=== PATIENT | male | born 1955 | race Caucasian/White ===

== ENCOUNTER 2017-04-22 12:35 | Outpatient (CLI) | payer BC, OTHER ==
--- OUTSIDE RECORDS SUMMARY | 2017-04-22 12:38 | XMS | Clinical Summary ---
:1955 Author Organization [facility] Address [address] [place] [address] Phone Care Team Providers Name Role Phone , Primary Care Provider Unavailable Allergies Not on File Current Medications Not on file Active Problems Not on file Social History Tobacco Use Types Packs/Day Years Used Date Never Assessed Sex Assigned at Date Recorded Not on file Last Filed Vital Signs Not on file Plan of Treatment Not on file Results Not on filefrom Last 3 Months
--- NOTE | 2017-04-22 14:42 | CT ---
CT ABDOMEN AND PELVIS NONCONTRAST: HISTORY: Kidney cancer. Restaging. COMPARISON: 01/07/13. FINDINGS: Lung bases are clear. Postoperative changes of the stomach and hiatal hernia are similar in appeara nce to the prior exam. Liver is diffusely hypodense. Gallbladder and right kidney are surgically a bsent. No enlarged lymph nodes are apparent within the retroperitoneum. There is calcification wit hin the arterial structures. Lack of contrast limits evaluation for other abnormalities. Degenerative changes involving the lumb ar spine. There is calcification in the arterial structures. IMPRESSION: 1. No evidence of recurrent disease. 2. Hepatosteatosis. 3. Other chronic-type findings are stable. POS: [facility]
== END 2017-04-22 12:36 | disposition home or self-care (01) ==
LOC: CT 12:35
PROVIDERS: ATTEND Urology
DX: C64.1 Malignant neoplasm of right kidney, except renal pelvis (principal); K76.0 Fatty (change of) liver, not elsewhere classified; R31.0 Gross hematuria
CPT/HCPCS: 74176; 81001; 87086

== ENCOUNTER 2017-05-14 10:17 | Outpatient (CLI) | payer BC, OTHER ==
[2017-05-14 13:48] LABS: Hematocrit 43.8 % (42.0-52.0); Mean Platelet Volume 6.7 fL (7.4-10.4); Red Blood Cell (RBC) Count 4.87 mill/uL (4.70-6.10); White Blood Cell (WBC) Count 6.6 thou/uL (4.8-10.8)
[2017-05-14 13:55] LABS: PTT 29.6 SEC (22.9-36.1)
[2017-05-14 13:59] LABS: Prothrombin Time 13.1 SEC (12.0-14.7)
--- OUTSIDE RECORDS SUMMARY | 2017-05-16 05:17 | XMS | Clinical Summary ---
:1955 Author Organization [facility] Address [address] [place] [address] Phone Care Team Providers Name Role Phone [...]
== END 2017-05-14 10:18 | disposition home or self-care (01) ==
LOC: LABBT 10:17
PROVIDERS: ATTEND Urology
DX: Z01.818 Encounter for other preprocedural examination (principal); R31.0 Gross hematuria
CPT/HCPCS: 85027; 85610; 85730

== ENCOUNTER 2017-05-15 05:49 | Day surgery (SDC) | payer BC, OTHER ==
[2017-05-14 10:27] VITALS: BMI 33.0
[2017-05-15] MEDS ORDERED: Levofloxacin 500 mg/D5W 100 ml Premix Bag ONE (06:34)
[2017-05-15] MEDS ORDERED: Fentanyl 100 MCG/2 ML VIAL ONE ×2 (06:44)
[2017-05-15] MEDS ORDERED: Iothalamate Meglumine 60% 50 ML VIAL FS ONE (07:14)
[2017-05-15] MEDS ORDERED: Succinylcholine Chloride 20 MG/ML 10 ml SYRINGE FS ONE (07:36)
[2017-05-15] MEDS ORDERED: Metoclopramide HCl 10 MG/2 ML VIAL ONE (07:36)
[2017-05-15] MEDS ORDERED: Lidocaine 1% PF 5 ML VIAL ONE (07:36)
[2017-05-15] MEDS ORDERED: Propofol 200 MG/20 ML VIAL ONE (07:36)
[2017-05-15] MEDS ORDERED: Ondansetron HCl/PF 4 MG/2 ML Vial ONE (07:36)
[2017-05-15] MEDS ORDERED: Dexamethasone 20 MG/5 ML VIAL ONE (07:36)
[2017-05-15] MEDS ORDERED: Phenazopyridine HCl 97.5 MG TABLET ONE (08:21)
[2017-05-15] MEDS ORDERED: Promethazine HCl 25 MG/ML VIAL ONE (08:24)
[2017-05-15] MEDS ORDERED: Non-Formulary Medication 1 EACH PO PRN (08:52)
[2017-05-15] MEDS ORDERED: Promethazine HCl 25 MG/ML VIAL IM/IV PRN (08:52)
[2017-05-15] MEDS ORDERED: Ondansetron HCl/PF 4 MG/2 ML Vial IVP PRN (08:52)
--- NOTE | 2017-05-15 09:15 | RAD ---
RETROGRADE IVP: History: 61-year-old male with history of neoplasm of the right kidney, prior right nephrectomy. FINDINGS: Multiple fluoroscopic spot images are performed. There is injection of the left ureter. No evidence for ureteral obstruction. No overt intraluminal calculus or other filling defect. IMPRESSION: Unremarkable left retrograde pyelogram. History of prior right nephrectomy with surgical clips in th e right retroperitoneum. POS: [facility]
--- NOTE | 2017-05-15 09:51 | OP ---
DATE OF PROCEDURE: 05/15/2017 PREOPERATIVE DIAGNOSES: 1. A 61-year-old male with pathologic T3a chromophobe renal cell carcinoma, status post right nephr ectomy with no evidence of cancer recurrence. 2. History of benign prostatic hypertrophy. 3. History of elevated PSA, multiple biopsies negative for malignancy with benign digital rectal ex amination. 4. Recent gross hematuria. POSTOPERATIVE DIAGNOSES: 1. A 61-year-old male with pathologic T3a chromophobe renal cell carcinoma, status post right nephr ectomy with no evidence of cancer recurrence. 2. History of benign prostatic hypertrophy. 3. History of elevated PSA, multiple biopsies negative for malignancy with benign digital rectal ex amination. 4. Recent gross hematuria. PROCEDURE: Cystoscopy, left retrograde pyelogram, meatal calibration, dilatation of mild meatal kelsy nosis. SURGEON: Peace Escobedo D.O. ANESTHESIA: General. COMPLICATIONS: None apparent. SPECIMEN: None. DISPOSITION: To recovery room in stable condition. INTRAOPERATIVE FINDINGS: 1. Mild meatal stenosis caliber, approximately 16 Montserratian, subsequently dilated to 28 [place]ian with ea se. 2. Nonobstructing wide caliber bulbar stricture, caliber approximately 18-20 Montserratian. 3. Moderately obstructing prostate bilobar hyperplasia of prostate with no significant intravesical median lobe. 4. No evidence of bladder tumor lesion. Clear efflux of the ureter, left retrograde pyelogram negat flores for obstruction, filling defect. INDICATIONS FOR THE PROCEDURE AND HISTORY: Mr. Wilder is a 61-year-old male who I treated for rig ht chromophobe renal cell carcinoma, status post right nephrectomy. The patient has had no cancer r ecurrence. He does have an elevated PSA which we did perform multiple staging biopsy is negative fo r malignancy. Last biopsy was performed on 10/28/2014. I discussed with patient regarding possible consideration for MRI-guided prostate biopsy, a persistent elevated PSA. His baseline PSA over the last 4 years has been variable from 5.0-5.9, with percent free with 10% probability of malignancy. I will continue to follow this. He presents today for exam under anesthesia for gross hematuria wo rkup. He presented to my office with episode of gross hematuria after intercourse, he has not been active for years. This had resolved. He had subsequently voided clear yellow urine and preop urine culture negative. I did obtain a followup cytology, which is negative for malignancy. As he has h istory of solitary kidney with renal insufficiency, advised regarding exam under anesthesia with ret rograde pyelogram and desires to proceed. Risks and complications of the procedure was reviewed wit h him in detail including, but not limited to, bleeding, pain, infection, injury to adjacent organs, urosepsis. DESCRIPTION OF THE PROCEDURE: After an informed consent is signed, the patient is taken to the oper ating room, placed in a dorsal lithotomy position with the genital area prepped and draped in the [facility] surgical sterile fashion. A 21-Montserratian cystoscope was attempted to be passed; however, there was resistance at the level of the meatus. Therefore, I did utilize Zayra sounds. His meatus mauricio brated to 16 Montserratian. We subsequently dilated to 28 [place]ian with ease. We subsequently passed a 28 F rench cystoscope which demonstrated a wide caliber bulbar stricture, approximately 18-20 Mont[place]err[place]ian mauricio [place] at the level of the bulbar urethra. I was able to pass this proximal to this without any issues . Bilobar hyperplasia of the prostate moderately obstructing was noted. Upon entering the bladder, there was no evidence of bladder tumor or stones. Bilateral UOs are normal orthotopic positions, s tatus post right nephrectomy. The left UO demonstrated clear efflux of urine. An open-ended cathet er, utilizing 5 Monts[place]atian open-ended catheter with diluted contrast was utilized for retrograde study, which demonstrated no evidence of filling defect or hydronephrosis. There was prompt excretion of c ontrast. At this time, we then resurveyed the prostate and the bulbar urethral stricture. Again, t his was nonobstructing and therefore I will observe. We subsequently removed the cystoscope. I did pass a 20 [place] catheter which intubated the bladder without any issues. Bladder was completely e mptied, catheter removed. He tolerated the procedure well and transported to the recovery room in s table condition. I will continue to monitor his voiding parameters. Repeat local cystoscopy to sta ge bulbar stricture would be warranted if recurrence of gross hematuria, decreased urinary caliber. The patient will take AZO p.r.n. for dysuria. Return to clinic for a postop check on 05/31/2017.
--- OUTSIDE RECORDS SUMMARY | 2017-05-16 13:28 | XMS | Clinical Summary ---
:1955 Author Organization [facility] Address [address] [place] [address] Phone Care Team Providers Name Role Phone [...]
== END 2017-05-15 09:20 | disposition home or self-care (01) ==
LOC: SDC 05:49
PROVIDERS: ATTEND Urology
PROC: 0T7D8ZZ Dilation of Urethra, Via Natural or Artificial Opening Endoscopic (ICD-10-PCS; principal; 2017-05-15)
DX: R31.0 Gross hematuria (principal); I10 Essential (primary) hypertension; E78.00 Pure hypercholesterolemia, unspecified; I25.10 Atherosclerotic heart disease of native coronary artery without angina pectoris; N40.0 Benign prostatic hyperplasia without lower urinary tract symptoms; E07.9 Disorder of thyroid, unspecified; Z88.5 Allergy status to narcotic agent; Z88.8 Allergy status to other drugs, medicaments and biological substances; Z79.82 Long term (current) use of aspirin; Z79.899 Other long term (current) drug therapy; Z95.1 Presence of aortocoronary bypass graft; Z90.49 Acquired absence of other specified parts of digestive tract; Z90.5 Acquired absence of kidney; Z98.84 Bariatric surgery status; Z87.448 Personal history of other diseases of urinary system
CPT/HCPCS: 74420; 96374; C1758; C1769; J1100; J1956; J2001; J2270; J2405; J2550; J2704; J2765; J3010; Q9961

== ENCOUNTER 2019-01-25 16:49 | Inpatient (IN) | payer BC, OTHER ==
[2019-01-25 17:24] LABS: #Eosinphils 0.1 thou/uL (0.0-0.7); #Lymphocytes 0.8 thou/uL (1.20-3.40); #Monocytes 1.3 thou/uL (0.11-0.59); #Neutrophils 12.3 thou/uL (1.40-6.50); %Basophils 0.2 % (0.0-1.0); %Eosinophils 0.8 % (0.0-10.0); %Lymphocytes 5.6 % (21.0-51.0); %Monocytes 9.2 % (0.0-10.0); %Neutrophils 84.2 % (42.0-75.0); Hemoglobin 14.6 g/dL (14.0-18.0); Mean Corpuscular HGB CONC 34.9 g/dL (32.0-36.0); Mean Corpuscular Hemoglobin 29.3 pg (27.0-31.0); Mean Corpuscular Volume 83.9 fL (78.0-98.0); Mean Platelet Volume 6.4 fL (7.4-10.4); Platelet Count 215 thou/uL (130-400); RBC Distribution Width 12.6 % (11.5-14.5); Red Blood Cell (RBC) Count 4.98 mill/uL (4.70-6.10); White Blood Cell (WBC) Count 14.6 thou/uL (4.8-10.8)
--- NOTE | 2019-01-25 17:33 | RAD ---
Exam: Chest one view HISTORY:Chest pain Comparison: 08/10/2012 FINDINGS: Cardiac silhouette:There is cardiomegaly. Sternotomy wires are noted. Pulmonary vessels: Slightly prominent. Costophrenic angles: Clear LUNGS: Patchy interstitial opacities, without consolidation or mass. Pneumothorax: None Osseous abnormalities: None IMPRESSION: 1. Congestive heart failure. Continued surveillance is recommended.
[2019-01-25 17:46] LABS: ALT (SGPT) 28 U/L (8-55); AST (SGOT) 20 U/L (5-34); Alkaline Phosphatase 89 U/L (40-150); Anion Gap 17 mmol/L (10-20); BUN (Urea Nitrogen) 10 mg/dL (8.4-25.7); Bilirubin, Total 1.4 mg/dL (0.2-1.2); CK (CPK) 148 U/L (30-200); Calc. Creatinine Clearance 0 mL/min (70-130); Calcium 8.6 mg/dL (7.8-10.44); Carbon Dioxide 21 mmol/L (23-31); Chloride 102 mmol/L (98-107); Estimated GFR-MDRD 78; Globulin 2.8 g/dL (2.4-3.5); Glucose 131 mg/dL (80-115); Lipase 698 U/L (8-78); Protein, Total 6.8 g/dL (5.8-8.1); Sodium 137 mmol/L (136-145)
[2019-01-25 17:48] LABS: Potassium 2.8 mmol/L (3.5-5.1)
[2019-01-25] MEDS ORDERED: NS 0.9% w/ 40 MEQ KCL 1,000 ML IV SCH (18:15)
[2019-01-25] MEDS ORDERED: Morphine 4 MG/ML VIAL ONE (19:21)
[2019-01-25] MEDS ORDERED: Ondansetron PF 4 MG/2 ML Vial ONE (19:21)
[2019-01-25 19:46] LABS: Bilirubin Negative (Negative); Blood, Urine Trace (Negative); Clarity Clear (Clear); Glucose, Urine (Dipstick) Normal (Negative); Leukocyte Negative Leu/uL (Negative); Nitrite Negative (Negative); Protein, Urine (Dipstick) 50 mg/dL (Neg-Trace); RBC/HPF 0-3 HPF (0-3); Urobilinogen 3 mg/dL (Less than 2); WBC/HPF 0-3 HPF (0-3)
[2019-01-25 19:48] LABS: Bacteria/HPF None Seen HPF (None Seen)
--- NOTE | 2019-01-25 20:47 | CT ---
EXAM: CT ABDOMEN AND PELVIS HISTORY: Abdominal pain. Renal cancer. Previous nephrectomy. COMPARISON: 04/22/2017 Procedure: Multiple contiguous axial images were obtained and a CT of the abdomen and pelvis with IV contrast. C oronal reformats were performed. FINDINGS: Lower Chest: Chronic changes lung bases. Vessels: Normal caliber aorta. Heart: Unremarkable Abdomen: Portal vein:Patent Gallbladder: Surgically absent Liver: within normal limits. Pancreas: There is atrophy of the pancreas with peripancreatic fat stranding. No cyst or abscess. Spleen: within normal limits. Adrenals: within normal limits. Kidneys: Surgically absent right kidney. Appropriate enhancement of the left kidney. No obstructive u ropathy. Subcentimeter hypodensity emanating from the lower pole of the left kidney is too small to characterize. Peritoneum: There is fluid in the peripancreatic space, extending anterior to the left renal space an d down the left paracolic gutter. No free air. No mass or lymphadenopathy. Bowel: Limited evaluation due to lack of oral contrast. Stable large hiatal hernia with fluid in the visualized thoracic esophagus. No evidence of small bowel obstruction. Ileocecal junction is unremarkable. Appendix is not appreciated. Scattered fecal material in a nondistended, nondilated col on. Mild mucosal thickening and pericolonic fat stranding adjacent to the splenic flexure is likely reactive, secondary to pancreatitis. Mesentery and Retroperitoneum: No enlarged mesenteric or retroperitoneal lymph nodes. Abdominal Wall: within normal limits. Pelvis: Reproductive Organs: No pelvic masses. Pelvis: within normal limits. Bladder: within normal limits. Bones: within normal limits. IMPRESSION: 1. Pancreatitis. No evidence of peripancreatic abscess or pseudocyst.
[2019-01-25] MEDS ORDERED: Ondansetron ODT 4 MG TAB PO PRN (22:42)
[2019-01-25] MEDS ORDERED: Magnesium 2 GM/50 ML 2 GM in Premix Bag 1 BAG IVPB SCH (23:15)
[2019-01-25] MEDS ORDERED: Magnesium 2 GM/50 ML BAG (IN WATER) ONE (23:45)
[2019-01-25] MEDS ORDERED: Potassium Chloride 40 MEQ in Sodium Chloride 0.9% 500 ML IVPB SCH (23:59)
[2019-01-26] MEDS: Sodium Chloride 0.9% 1,000 ML IV SCH ×4 (00:04→21:44)
--- NOTE | 2019-01-26 00:18 | PDOC.FPRHP ---
- History of Present Illness Chief Complaint: Abdominal Pain, nausea and vomiting History of Present Illness: Mr. Wilder presented to the ED the evening of 01/25/19 for nausea, vomiting, and severe abdominal pain. He states that the abdominal pain began 5 prior to admission and was associated with nausea. He began vomiting today and has vomited approximately 10 times. He had associated diarrhea last week but has not had a BM 01/24/19. The pain is 8/10, located in his midepigastrium, is constant and does not radiate. ED Course: EKG (chest pain rule out), morphine 4mg, zofran 4mg, KCl 40meq in 1L NS, 1L NS. - Allergies/Adverse Reactions Allergies Allergy/AdvReac Type Severity Reaction Status Date / Time acetaminophen [From Vicodin] Allergy Verified 05/14/17 10:28 hydrocodone [From Vicodin] Allergy Verified 05/14/17 10:28 - Home Medications Medication Instructions Recorded Confirmed Type Aspirin [Ecotrin] 81 mg PO DAILY 05/14/17 01/26/19 History Ezetimibe 1 tab PO HS 05/14/17 01/26/19 History Levothyroxine Sodium 50 mcg PO DAILY 05/14/17 01/26/19 History Metoprolol Tartrate 0.5 tab PO HS 05/14/17 01/26/19 History Omeprazole 1 tab PO HS 05/14/17 01/26/19 History Rosuvastatin Calcium 40 mg PO HS 05/14/17 01/26/19 History Sertraline HCl [Zoloft] 0.5 tab PO HS 05/14/17 01/26/19 History Tamsulosin HCl [Flomax] 0.4 mg PO DAILY 05/14/17 01/26/19 History - History PMHx: Hypertension CAD Hyperlipidemia Hypothyroidism GERD Renal cancer Anxiety / Depression BPH PSHx: Left nephrectomy CABG x3 Fundoplication Hiatal hernia repair x2 Cholecystectomy FHx: Non-contributory Social: Never smoker, non-drinker, no illicit drugs. - Review of Systems General: denies: fever/chills, weight/appetite/sleep changes, night sweats, fatigue ENT: denies: nasal congestion, rhinorrhea Respiratory: denies: cough, congestion Cardiovascular: reports: chest pain (believed to be related to vomiting). denies: palpitation, edema, paroxysmal nocturnal dyspnea, orthopnea Gastrointestinal: reports: nausea, vomiting, diarrhea, abdominal pain. denies: constipation, GI bleeding Genitourinary: denies: incontinence Skin: denies: rashes Musculoskeletal: reports: pain (abdominal muscular pain) - Vital signs BP: [178/92] HR: [89] RR: [18] Tmax: [100.3F @ 1653] Pox: [95]% on [RA] Wt: [ 104kg] - Physical Exam Constitutional: NAD, awake, alert and oriented HEENT: normocephalic and atraumatic, grossly normal hearing Neck: supple, FROM Heart: RRR (tachycardic), normal S1/S2, no murmurs/rubs/gallops Lungs: CTAB, no respiratory distress, no rales/rhonchi, no wheezing Abdomen: soft (tender to light palpation at the midepigastrium), bowel sounds present (hypoactive) Neurological: no focal deficit Skin: no rash/lesions Psychiatric: normal mood and affect FMR H&P: Results - Labs Result Diagrams: 01/26/19 05:08 01/26/19 05:08 Lab results: WBC 14.6 thou/uL (4.8-10.8) H 01/25/19 17:14 Hgb 14.6 g/dL (14.0-18.0) 01/25/19 17:14 Hct 41.7 % (42.0-52.0) L 01/25/19 17:14 MCV 83.9 fL (78.0-98.0) 01/25/19 17:14 Plt Count 215 thou/uL (130-400) 01/25/19 17:14 Neutrophils % 84.2 % (42.0-75.0) H 01/25/19 17:14 Sodium 137 mmol/L (136-145) 01/25/19 17:14 Potassium 2.8 mmol/L (3.5-5.1) L* 01/25/19 17:14 Chloride 102 mmol/L (98-107) 01/25/19 17:14 Carbon Dioxide 21 mmol/L (23-31) L 01/25/19 17:14 BUN 10 mg/dL (8.4-25.7) 01/25/19 17:14 Creatinine 0.97 mg/dL (0.7-1.3) 01/25/19 17:14 Glucose 131 mg/dL (80-115) H 01/25/19 17:14 Calcium 8.6 mg/dL (7.8-10.44) 01/25/19 17:14 Total Bilirubin 1.4 mg/dL (0.2-1.2) H 01/25/19 17:14 AST 20 U/L (5-34) 01/25/19 17:14 ALT 28 U/L (8-55) 01/25/19 17:14 Alkaline Phosphatase 89 U/L (40-150) 01/25/19 17:14 Creatine Kinase 148 U/L (30-200) 01/25/19 17:14 Serum Total Protein 6.8 g/dL (5.8-8.1) 01/25/19 17:14 Albumin 4.0 g/dL (3.4-4.8) 01/25/19 17:14 Lipase 698 U/L (8-78) H 01/25/19 17:14 Urine Ketones 60 mg/dL (Negative) A 01/25/19 19:20 Urine Blood Trace (Negative) A 01/25/19 19:20 Urine Nitrite Negative (Negative) 01/25/19 19:20 Ur Leukocyte Esterase Negative Ruben/uL (Negative) 01/25/19 19:20 Urine RBC 0-3 HPF (0-3) 01/25/19 19:20 Urine WBC 0-3 HPF (0-3) 01/25/19 19:20 Urine Bacteria None Seen HPF (None Seen) 01/25/19 19:20 - EKG Interpretation EK01/25/2019 @ 1656 Sinus tachycardia, no T wave changes - Radiology Interpretation Chest x-ray Status: report reviewed by me (Cardiomegaly. Lungs show patchy interstitial opacities without consolidation or mass. Impression: CHF) CT scan - abdomen Status: report reviewed by me (atrophy of the pancreas with peripancreatic fat stranding, no cyst of abscess. Surgically absent right kidney.) FMR H&P: A/P - Problem List (1) Acute pancreatitis Current Visit: Yes Status: Acute Code(s): K85.90 - ACUTE PANCREATITIS WITHOUT NECROSIS OR INFECTION, UNSP Qualifiers: Pancreatitis type: unspecified pancreatitis type (2) Hypokalemia Current Visit: Yes Status: Acute Code(s): E87.6 - HYPOKALEMIA (3) Hypothyroidism Current Visit: Yes Status: Chronic Code(s): E03.9 - HYPOTHYROIDISM, UNSPECIFIED (4) Benign prostate hyperplasia Current Visit: Yes Status: Chronic Code(s): N40.0 - BENIGN PROSTATIC HYPERPLASIA WITHOUT LOWER URINRY TRACT SYMP (5) Hyperlipidemia Current Visit: Yes Status: Chronic Code(s): E78.5 - HYPERLIPIDEMIA, UNSPECIFIED (6) Coronary artery disease Current Visit: Yes Status: Chronic Code(s): I25.10 - ATHSCL HEART DISEASE OF [place] CORONARY ARTERY W/O ANG PCTRS - Plan 1. Acute pancreatitis - Strict NPO - Aggressive IV fluids, 140mL/hour NS - Pain control with morphine 4mg IV q 4hr, PRN 2. Hypokalemia - 2.8 on admission - Received 40meq in the ER. Added 40meq on transfer. - Mg 1.7 - Recheck with AM labs 3. Hypertension - BP elevated in ER. - NPO, hasn't taken home meds today (Metoprolol 25mg 1/2tab po BID) - Will start on IV Hydralazine and Labetolol PRN until PO is resumed 4. CAD - Will resume home medication (aspirin 81mg) when he tolerates PO 5. Hypothyroidism - Will resume home medication (levothyroxine 100mcg) when he tolerates PO 6. GERD - Will resume home medication (omeprazole 20mg) when he tolerates PO 7. Hyperlipidemia - Will resume home medication (zetia 10mg, crestor 40mg) when he tolerates PO 8. BPH - Will resume home medication (tamsulosin 0.4mg) when he tolerates PO 9. Anxiety and Depression - Will resume home medication (sertraline 50mg) when he tolerates PO Disposition/LOS: Plan to d/c home. FMR H&P: Upper Level - Pertinent history 63 yo M with hx of CAD s/p 3vCABG, HLD, HTN, hypothyroid, MDD and BPH here with complaint of 5 days of progressively worsening abdominal pain with associated vomiting. Pain is in the epigastrum and does not radiate. Made worse by palpation and eating. No previous hx of similar symptoms. No recent hx of travel or sick contacts. Denies associated fever, blood stools, blood in vomit. In the ED CT abd was concerning for pancreatitis without complicating pseudocysts. Patient was made NPO and given morphine for pain control. See internal control consultant note for full ROS General denies fever or chills CV denies palpitation or chest pain Resp denies SOB or cough Abd complains of epigastric pain with associated n/v. No diarrhea, blood in vomit, blood in stool Neuro no numbness or tingling or weakness - Pertinent findings See internal control consultant note for vitals, labs, and full PE General A&O x3, no acute distress HEENT NCAT CV RRR no murmur Resp CTA Abd Diffuse TTP, worst at epigastrum. Normal BS. Abd soft Neuro no focal deficits - Plan Date/Time: 01/26/19 0016 I, Negro Garcia DO, have evaluated this patient and agree with findings/plan as outlined by internal control consultant resident. Pertinent changes/additions are listed here. 1. Acute pancreatitis - NPO over night and consider advancing diet in am. - Morphine for pain control - trend cmp, fluid requirement, base deficit, and pO2 for Sycamore's criteria - Check lipids 2. HTN - PRN IV antihypertensives, restart home meds in am 3. CAD - restart home meds 4. hypokalemia - replace IV, recheck in am See internal control consultant note for chronic problem management Addendum - Attending - Attending Attestation Date/Time: 01/26/19 4930 I personally evaluated the patient and discussed the management with Dr. Oliver last night at time of admission. I agree with the History, Examination, Assessment and Plan documented above with any addition or exceptions noted below.
[2019-01-26] MEDS ORDERED: Labetalol HCl 100 MG/20 ML VIAL SLOW IVP PRN (02:04)
[2019-01-26 03:09] VITALS: BMI 31.9
[2019-01-26] MEDS: hydrALAZINE 20 MG/ML VIAL SLOW IVP PRN (03:45)
[2019-01-26] MEDS: Morphine 4 MG/ML VIAL SLOW IVP PRN ×3 (03:47→19:16)
[2019-01-26 07:09] LABS: Hemoglobin 13.8 g/dL (14.0-18.0); Mean Corpuscular HGB CONC 33.1 g/dL (32.0-36.0); Mean Corpuscular Hemoglobin 28.3 pg (27.0-31.0); Mean Corpuscular Volume 85.4 fL (78.0-98.0); Mean Platelet Volume 6.8 fL (7.4-10.4); Platelet Count 199 thou/uL (130-400); RBC Distribution Width 12.8 % (11.5-14.5); Red Blood Cell (RBC) Count 4.87 mill/uL (4.70-6.10); White Blood Cell (WBC) Count 22.3 thou/uL (4.8-10.8)
[2019-01-26 07:19] LABS: ALT (SGPT) 22 U/L (8-55); AST (SGOT) 17 U/L (5-34); Albumin 3.7 g/dL (3.4-4.8); Alkaline Phosphatase 83 U/L (40-150); Anion Gap 13 mmol/L (10-20); BUN (Urea Nitrogen) 9 mg/dL (8.4-25.7); Bilirubin, Total 1.3 mg/dL (0.2-1.2); Calc. Creatinine Clearance 109 mL/min (70-130); Calcium 8.6 mg/dL (7.8-10.44); Carbon Dioxide 26 mmol/L (23-31); Chloride 103 mmol/L (98-107); Estimated GFR-MDRD 74; Glucose 118 mg/dL (80-115); Lipase 305 U/L (8-78); Protein, Total 6.7 g/dL (5.8-8.1); Sodium 139 mmol/L (136-145)
[2019-01-26 07:40] LABS: Band 20 % (5-11); Lymphocytes 4 % (21-51); MDiff Complete? YES; Monocytes 8 % (0-10); Neutrophil 66 % (42-75); Platelet Morphology Comment Appears Adequate; RBC Morphology Normal; Reactive Lymphocytes 1 % (0-10)
--- NOTE | 2019-01-26 07:44 | PDOC.FM ---
- Subjective Subjective: pt reporting pain in abdomen, denies N/V - Objective Vital Signs & Weight: Vital Signs (12 hours) Temp Pulse Resp BP BP Pulse Ox 01/26/19 07:29 98.2 F 84 18 172/68 H 97 01/26/19 05:42 97.8 F 86 16 169/77 H 96 01/26/19 03:45 96 200/101 H 01/26/19 03:01 97 01/26/19 02:42 99.1 F 93 18 200/101 H 97 Weight Weight 104 kg Result Diagrams: 01/26/19 05:08 01/26/19 05:08 Phys Exam - Physical Examination Constitutional: NAD HEENT: moist MMs Neck: full ROM Respiratory: clear to auscultation bilateral Cardiovascular: RRR, no significant murmur TTP, tympanic, mild guarding Musculoskeletal: no edema Neurological: moves all 4 limbs Psychiatric: normal affect Skin: no rash Dx/Plan (1) Acute pancreatitis Code(s): K85.90 - ACUTE PANCREATITIS WITHOUT NECROSIS OR INFECTION, UNSP Status: Acute Qualifiers: Pancreatitis type: unspecified pancreatitis type (2) Hypokalemia Code(s): E87.6 - HYPOKALEMIA Status: Acute (3) Benign prostate hyperplasia Code(s): N40.0 - BENIGN PROSTATIC HYPERPLASIA WITHOUT LOWER URINRY TRACT SYMP Status: Chronic (4) Coronary artery disease Code(s): I25.10 - ATHSCL HEART DISEASE OF [place] CORONARY ARTERY W/O ANG PCTRS Status: Chronic (5) Hyperlipidemia Code(s): E78.5 - HYPERLIPIDEMIA, UNSPECIFIED Status: Chronic (6) Hypothyroidism Code(s): E03.9 - HYPOTHYROIDISM, UNSPECIFIED Status: Chronic - Plan Plan: Acute pancreatitis - epigastric pain, elevated lipase and CT suggestive - Morphine for pain control - trend cmp, fluid requirement, base deficit, and pO2 for Luz Marina's criteria - FLP wnl, lipase downtrending - ADAT when pain free HTN - PRN IV antihypertensives, restart home meds hypokalemia - monitor and replete as needed CAD - Will resume home medication (aspirin 81mg) when he tolerates PO Hypothyroidism - Will resume home medication (levothyroxine 100mcg) when he tolerates PO GERD - Will resume home medication (omeprazole 20mg) when he tolerates PO Hyperlipidemia - Will resume home medication (zetia 10mg, crestor 40mg) when he tolerates PO BPH - Will resume home medication (tamsulosin 0.4mg) when he tolerates PO Anxiety and Depression - Will resume home medication (sertraline 50mg) when he tolerates PO Dispo: advance diet today, monitor Addendum - Attending - Attending Attestation Date/Time: 01/26/19 1024 I personally evaluated the patient and discussed the management with Dr. Gross. I agree with the History, Examination, Assessment and Plan documented above with any addition or exceptions noted below.
[2019-01-26] MEDS ORDERED: Prevnar 13-Val Conj/PF 0.5 ML SYRINGE IM ONE (09:00)
[2019-01-26] MEDS ORDERED: NS 0.9% w/ 40 MEQ KCL 1,000 ML IV SCH (11:00)
[2019-01-27] MEDS: Sodium Chloride 0.9% 1,000 ML IV SCH ×2 (03:11→08:06)
[2019-01-27] MEDS: Morphine 4 MG/ML VIAL SLOW IVP PRN (06:40)
[2019-01-27 06:58] LABS: #Eosinphils 0.1 thou/uL (0.0-0.7); #Lymphocytes 0.8 thou/uL (1.20-3.40); #Monocytes 1.6 thou/uL (0.11-0.59); #Neutrophils 15.7 thou/uL (1.40-6.50); %Basophils 0.1 % (0.0-1.0); %Eosinophils 0.6 % (0.0-10.0); %Lymphocytes 4.6 % (21.0-51.0); %Monocytes 8.8 % (0.0-10.0); Hemoglobin 12.2 g/dL (14.0-18.0); Mean Corpuscular HGB CONC 32.5 g/dL (32.0-36.0); Mean Corpuscular Volume 86.4 fL (78.0-98.0); Mean Platelet Volume 7.4 fL (7.4-10.4); Platelet Count 161 thou/uL (130-400); RBC Distribution Width 12.9 % (11.5-14.5); Red Blood Cell (RBC) Count 4.34 mill/uL (4.70-6.10); White Blood Cell (WBC) Count 18.3 thou/uL (4.8-10.8)
[2019-01-27 07:18] LABS: ALT (SGPT) 18 U/L (8-55); AST (SGOT) 18 U/L (5-34); Albumin 3.1 g/dL (3.4-4.8); Alkaline Phosphatase 68 U/L (40-150); Anion Gap 9 mmol/L (10-20); BUN (Urea Nitrogen) 11 mg/dL (8.4-25.7); Bilirubin, Total 0.8 mg/dL (0.2-1.2); Calc. Creatinine Clearance 119 mL/min (70-130); Calcium 8.8 mg/dL (7.8-10.44); Carbon Dioxide 27 mmol/L (23-31); Chloride 106 mmol/L (98-107); Estimated GFR-MDRD 83; Globulin 2.7 g/dL (2.4-3.5); Glucose 116 mg/dL (80-115); Lipase 85 U/L (8-78); Potassium 3.3 mmol/L (3.5-5.1); Protein, Total 5.8 g/dL (5.8-8.1); Sodium 139 mmol/L (136-145)
--- NOTE | 2019-01-27 07:59 | PDOC.FM ---
- Subjective Subjective: pt resting comfortably in bed, minimal pain. tolerating PO - Objective Vital Signs & Weight: Weight Weight 104 kg I&O: 01/26/19 01/27/19 01/28/19 06:59 06:59 06:59 Intake Total 360 Balance 360 Result Diagrams: 01/27/19 05:40 01/27/19 05:40 Phys Exam - Physical Examination Constitutional: NAD HEENT: moist MMs Neck: full ROM Gastrointestinal: soft, no distention minimally tender to palpation Musculoskeletal: pulses present Neurological: moves all 4 limbs Psychiatric: normal affect Skin: no rash Dx/Plan (1) Acute pancreatitis Code(s): K85.90 - ACUTE PANCREATITIS WITHOUT NECROSIS OR INFECTION, UNSP Status: Acute Qualifiers: Pancreatitis type: unspecified pancreatitis type (2) Hypokalemia Code(s): E87.6 - HYPOKALEMIA Status: Acute (3) Benign prostate hyperplasia Code(s): N40.0 - BENIGN PROSTATIC HYPERPLASIA WITHOUT LOWER URINRY TRACT SYMP Status: Chronic (4) Coronary artery disease Code(s): I25.10 - ATHSCL HEART DISEASE OF [place] CORONARY ARTERY W/O ANG PCTRS Status: Chronic (5) Hyperlipidemia Code(s): E78.5 - HYPERLIPIDEMIA, UNSPECIFIED Status: Chronic (6) Hypothyroidism Code(s): E03.9 - HYPOTHYROIDISM, UNSPECIFIED Status: Chronic - Plan Plan: Acute pancreatitis - epigastric pain, elevated lipase and CT suggestive on admission - Morphine for pain control - trend cmp, fluid requirement, base deficit, and pO2 for Luz Marina's criteria - FLP wnl, lipase downtrending - ADAT HTN - PRN IV antihypertensives, restart home meds hypokalemia - monitor and replete as needed CAD - continue home medication (aspirin 81mg) Hypothyroidism - continue home medication (levothyroxine 100mcg) GERD - continue home medication (omeprazole 20mg) Hyperlipidemia - continue home medication (zetia 10mg, crestor 40mg) BPH - continue home medication (tamsulosin 0.4mg) Anxiety and Depression - continue home medication (sertraline 50mg) Dispo: DC today or tomorrow Addendum - Attending - Attending Attestation Date/Time: 01/27/19 1031 I personally evaluated the patient and discussed the management with Dr. Gross. I agree with the History, Examination, Assessment and Plan documented above with any addition or exceptions noted below.
[2019-01-27] MEDS ORDERED: Acetaminophen 325 MG TAB PO PRN (08:00)
[2019-01-27] MEDS ORDERED: Potassium Chloride 20 MEQ TAB PO SCH (10:15)
[2019-01-27] MEDS: hydrALAZINE 20 MG/ML VIAL SLOW IVP PRN (11:41)
[2019-01-27 16:24] VITALS: BP 183/84; TEMP 99
[2019-01-27] MEDS ORDERED: Non-Formulary Item 1 EACH (Rosuvastatin Calcium [Rosuvastatin Calcium] 40 MG) PO SCH (21:00)
[2019-01-27] MEDS ORDERED: Rosuvastatin 20 MG TAB PO SCH (21:00)
[2019-01-27] MEDS ORDERED: Ezetimibe 10 MG TAB PO SCH ×2 (21:00)
[2019-01-27] MEDS ORDERED: Metoprolol Tartrate 25 MG TAB PO SCH ×2 (21:00)
[2019-01-27] MEDS ORDERED: Non-Formulary Item 1 EACH (Omeprazole [Omeprazole] 1 TAB) PO SCH (21:00)
[2019-01-28] MEDS ORDERED: Aspirin 81 mg Enteric Coated Tablet PO SCH (09:00)
[2019-01-28] MEDS ORDERED: Polyethylene Glycol 3350 17 GM Packet PO SCH (09:00)
[2019-01-28] MEDS ORDERED: Levothyroxine Sodium 50 MCG TAB PO SCH (09:00)
--- NOTE | 2019-01-28 09:42 | DIS ---
DATE OF ADMISSION: 01/25/2019 DATE OF DISCHARGE: 01/27/2019 ADMITTING ATTENDING: Laci Novak MD DISCHARGE ATTENDING: Laci Novak MD. CONSULTS: None. RESIDENT: Christopher Gross DO PROCEDURES: None. IMAGING: CT of the abdomen positive for acute pancreatitis. Chest x-ray negative for acute cardiopulmonary abnormality. DISCHARGE MEDICATIONS: 1. Flomax 0.4 mg p.o. daily. 2. Zoloft one-half tab p.o. at bedtime. 3. Omeprazole 1 tablet p.o. at bedtime. 4. Metoprolol half of a 25 mg tab p.o. at bedtime. 5. Aspirin 81 mg daily. 6. Rosuvastatin 40 mg p.o. daily. 7. Levothyroxine 50 mcg p.o. daily. 8. Ezetimibe one tab p.o. at bedtime. DISCHARGE DIAGNOSIS: Acute pancreatitis. SECONDARY DIAGNOSES: 1. Hypertension. 2. Hypokalemia. 3. Coronary artery disease. 4. Hypothyroidism. 5. Gastroesophageal reflux disease. 6. Hyperlipidemia. 7. BPH. 8. Anxiety and depression. HISTORY OF PRESENT ILLNESS/HOSPITAL COURSE: Mr. Wilder is a 63-year-old male who presents to the emergency department with a chief complaint of nausea, vomiting, and severe abdominal pain. He has this kind of pain before and was diagnosed with acute pancreatitis in the past. In the ER, he received a CT scan that confirmed acute pancreatitis. Lipase was elevated. It was determined that he should be admitted to medical floor for supportive care. Started on IV fluids. The patient improved clinically, began to tolerate p.o. with minimal pain. IV fluids were able to be discontinued. The patient deemed stable for discharge home. DISCHARGE INSTRUCTIONS: 1. Location: Home. 2. Activity: As tolerated. 3. Diet: Low fat. 4. Follow up with PCP in the next 5-7 days. Job ID: [id number]
== END 2019-01-27 16:42 | disposition home or self-care (01) | DRG 440 ==
LOC: ERS 16:49 → ERHOLD 22:00 → T4-A 01-26 02:57
PROVIDERS: ADMIT Family Medicine; ATTEND Family Medicine
DX: K85.90 Acute pancreatitis without necrosis or infection, unspecified (principal); E87.6 Hypokalemia; E78.00 Pure hypercholesterolemia, unspecified; I10 Essential (primary) hypertension; I25.10 Atherosclerotic heart disease of native coronary artery without angina pectoris; E03.9 Hypothyroidism, unspecified; K21.9 Gastro-esophageal reflux disease without esophagitis; N40.0 Benign prostatic hyperplasia without lower urinary tract symptoms; F32.9 Major depressive disorder, single episode, unspecified; F41.9 Anxiety disorder, unspecified; Z95.1 Presence of aortocoronary bypass graft; Z90.49 Acquired absence of other specified parts of digestive tract; Z88.5 Allergy status to narcotic agent; Z88.8 Allergy status to other drugs, medicaments and biological substances; Z79.82 Long term (current) use of aspirin; Z79.899 Other long term (current) drug therapy; Z85.528 Personal history of other malignant neoplasm of kidney
CPT/HCPCS: 36415; 71045; 74177; 80053; 81003; 81015; 82550; 83615; 83690; 83735; 84478; 84484; 85025; 87040; 90471; 90670; 93005; 96365; 96366; 96375; G0009; J0360; J2270; J2405; J3475; J3480; J7050

== ENCOUNTER 2019-05-15 14:31 | Outpatient (CLI) | payer BC, OTHER ==
--- NOTE | 2019-05-15 16:09 | RAD ---
EXAM: Barium enema HISTORY: Incomplete colonoscopy. COMPARISON: None FINDINGS: A double contrast barium enema was performed with air and barium. Contrast was seen extending retrogr epifanio to the level of the cecum. The colon is normal in appearance without suspicious mass. A few diverticula are seen in the left colon. IMPRESSION: Colonic diverticulosis without suspicious colonic mass.
== END 2019-05-15 14:32 | disposition home or self-care (01) ==
LOC: RAD 14:31
PROVIDERS: ATTEND Internal Medicine
DX: Z12.11 Encounter for screening for malignant neoplasm of colon (principal); Z53.9 Procedure and treatment not carried out, unspecified reason
CPT/HCPCS: 74280

== ENCOUNTER 2020-04-06 09:33 | Outpatient (CLI) | payer MEDICARE, BC, OTHER ==
--- NOTE | 2020-04-06 10:17 | RAD ---
XR Chest Pa & Lat STANDARD HISTORY: Malignant neoplasm of the right kidney COMPARISON: 01/25/2019 FINDINGS: The heart size is enlarged but stable. Changes of median sternotomy are again seen. A hiatal hernia i s again noted. The lungs are well expanded without focal areas of consolidation, pneumothoraces or pleural effusions. No lung masses seen. IMPRESSION: No radiographic evidence of acute cardiopulmonary process.
== END 2020-04-06 09:34 | disposition home or self-care (01) ==
LOC: BICRAD 09:33
PROVIDERS: ATTEND Urology
DX: C64.1 Malignant neoplasm of right kidney, except renal pelvis (principal); R31.0 Gross hematuria; N28.9 Disorder of kidney and ureter, unspecified; Q60.0 Renal agenesis, unilateral
CPT/HCPCS: 71046

== ENCOUNTER 2020-04-12 08:57 | Outpatient (CLI) | payer BC, OTHER ==
--- NOTE | 2020-04-12 09:40 | CT ---
CT OF THE ABDOMEN AND PELVIS WITHOUT IV CONTRAST INDICATION: History of right nephrectomy for renal malignancy and new onset hematuria COMPARISON: CT the abdomen and pelvis without contrast dated August 23, [address] the abdomen an d pelvis with contrast dated July 28, 2018 FINDINGS: The lack of IV contrast limits evaluation of the solid organs of the abdomen and pelvis. ABDOMEN: Lung bases: There is a large hiatal hernia. There is postprocedural change of a gastroplasty. Liver: No focal lesion. Gallbladder: Surgically absent Pancreas: Normal. Adrenal glands: Normal. Spleen: Normal. Kidneys and ureters: Stable postsurgical change of a prior right nephrectomy. No renal or ureteral ca lculus is demonstrated involving the left kidney. No hydronephrosis is evident. Vasculature: There are mild vascular calcifications seen involving the visualized vasculature. Lymph nodes:No lymphadenopathy. Free fluid in abdomen:No free fluid is evident. PELVIS: Small and large bowel: Colonic diverticulosis. No acute abnormality. Appendix:Normal Bladder: Decompressed Rectal and perirectal soft tissues:Normal. Reproductive structures: The prostate is enlarged measuring 5.9 cm. This is relatively stable to the prior exam. Free fluid in pelvis: No free fluid is evident. Lymphadenopathy pelvis: No lymphadenopathy is evident. Osseous structures: No acute osseous abnormality. No destructive osteolytic or osteoblastic lesion i s identified. There is scattered degenerative and osteoarthritic changes. Soft tissues:Normal. IMPRESSION: 1. No renal or ureteral calculus. No hydronephrosis. Stable postprocedural change of a prior right ne phrectomy. No overt evidence to suggest recurrent neoplasm. 2. Stable prostate enlargement. 3. Other chronic findings as above
== END 2020-04-12 08:58 | disposition home or self-care (01) ==
LOC: BICCT 08:57
PROVIDERS: ATTEND Urology
DX: C64.1 Malignant neoplasm of right kidney, except renal pelvis (principal); R31.0 Gross hematuria; Q60.0 Renal agenesis, unilateral; N28.9 Disorder of kidney and ureter, unspecified; N40.0 Benign prostatic hyperplasia without lower urinary tract symptoms; K44.9 Diaphragmatic hernia without obstruction or gangrene; K57.30 Diverticulosis of large intestine without perforation or abscess without bleeding; I70.90 Unspecified atherosclerosis; M19.90 Unspecified osteoarthritis, unspecified site; Z90.5 Acquired absence of kidney
CPT/HCPCS: 74176

== ENCOUNTER 2021-03-30 08:13 | Outpatient (CLI) | payer MEDICARE, OTHER | END 2021-03-30 08:14 | disposition home or self-care (01) | LOC: BICRAD 08:13 | PROVIDERS: ATTEND Urology | DX: C64.1 Malignant neoplasm of right kidney, except renal pelvis (principal); K44.9 Diaphragmatic hernia without obstruction or gangrene | CPT/HCPCS: 71046 ==

== ENCOUNTER 2022-03-21 15:13 | Outpatient (CLI) | payer OTHER | END 2022-03-21 15:14 | disposition home or self-care (01) | LOC: BICCT 15:13 | PROVIDERS: ATTEND Urology | DX: N28.9 Disorder of kidney and ureter, unspecified (principal); C64.1 Malignant neoplasm of right kidney, except renal pelvis; Q60.0 Renal agenesis, unilateral; K44.9 Diaphragmatic hernia without obstruction or gangrene; I51.7 Cardiomegaly; Z90.5 Acquired absence of kidney; Z90.49 Acquired absence of other specified parts of digestive tract | CPT/HCPCS: 71046; 74176 ==

== ENCOUNTER 2023-02-18 09:16 | Outpatient (CLI) | payer MEDICARE, OTHER | END 2023-02-18 09:17 | disposition home or self-care (01) | LOC: RAD 09:16 | PROVIDERS: ATTEND Urology | DX: C64.1 Malignant neoplasm of right kidney, except renal pelvis (principal); K44.9 Diaphragmatic hernia without obstruction or gangrene | CPT/HCPCS: 36415; 71046; 80048; 81001; G0103 ==